=== PATIENT | male | born 1990 | race Caucasian/White ===

== ENCOUNTER 2016-08-20 18:37 | Emergency (ER) | payer OTHER ==
[~2016-08-20] VITALS: Ht 185.4 cm; Wt 79.5 kg
[2016-08-20 18:40] VITALS: BP 144/84; PULSE 92; RESP 20; O2SAT 100
--- NOTE | 2016-08-20 19:19 | ED.REPORT ---
HPI- Male Date of Service Aug 20, 2016 ED Provider: Giovanni Giron MD 26 year old male presents to the ER accompanied by his uncle complaining of blood in his urine at 17:45 this evening. He states that he had some difficulty urinating initially and that the blood appeared at the end of urine stream. Associated symptom of dysuria. Patient denies fever, chills, and diaphoresis. Currently he is on a course of Augmentin to treat cellulitis of the left hand. He is a regular IV heroin and methamphetamine user and states that he last used at 17:30 today. Nursing Notes Stated Complaint: URINATING BLOOD Chief Complaint: General Complaint Nursing Notes Reviewed: Yes (Lumetrics. meds not reconciled) Allergies: Coded Allergies: erythromycin ethylsuccinate (Verified Allergy, Severe, Cardiac Arrest, 14/04) Uncoded Allergies: Erythromycin (Allergy, Severe, Cardiac Arrest, 01/10/05) Scheduled Buprenorphine/Naloxone 8-2 mg (Buprenorphine/Naloxone 8-2 mg) 1 Each Tab.subl 1 TABLET SL BID General Time Seen by MD: 19:18 Chief Complaint Blood in urine Hx Obtained From: Patient Arrived By: Walk-in Onset Occurred: Just prior to arrival Symptom Duration: Since onset Associated with: Denies: Chills, Fever Past Medical History Past Medical History Denies history of kidney stones Denies history of cardiac infection Past Surgical History Colonoscopy Smoking History Unknown if Ever Smoker Social History Alcohol Use: "Social" Drug Use: IV drugs, Meth, Other (Heroin) Other Social History: Good social support Ambulatory Status Independent Review of Systems Constitutional: Denies: Chills, Fever GI: Denies: Abdominal pain, Nausea, Vomiting Male: Reports Dysuria, Reports Hematuria, Denies Flank pain, Denies Incontinence, Denies Penile discharge, Denies Penile lesion, Denies Urinary frequency, Denies Urinary urgency Skin: Denies Diaphoresis Complete sys rev & neg: except as marked. Physical Exam Initial Vital Signs Vital Signs (First) Date Time Temp Pulse Resp B/P Pulse Ox O2 Delivery O2 Flow Rate FiO2 08/20/16 18:40 36.4 92 20 144/84 100 Room Air Initial VS: Reviewed, Vital signs normal General/Constitutional: Well-developed, Well-nourished Head / Eyes: Atraumatic, Normocephalic Neck: Supple, Non-tender, Full range of motion Respiratory: Breath sounds normal, Clear to auscultation, No respiratory distress Cardiovascular: Regular rate & rhythm, Heart sounds normal, Intact distal pulses Abdomen / GI: Soft, Non-tender, No guarding, No rebound, No distention Psychiatric: Mood/affect normal, Behavior normal, Normal thought content Upper Extremity / MS: Full range of motion, No deformity, Neurologic intact, Vascular intact Track shah along both upper extremities. Wrist / Hand: Full range of motion, Neurologic intact, Vascular intact Erythema overlying the left hand, though he says it is markedly improved. Lower Extremity / Pelvis / MS: Full range of motion, Neurologic intact, Vascular intact 1cm cyst over the right hip. Neurologic: Oriented X3, Speech NL, No motor deficits, No sensory deficits Interpretation & Diagnostics Lab Results Interpretation Result Diagram: 08/20/16202408/20/162024 Test 08/20/16 19:29 08/20/16 20:25 Urine Color Yellow (YELLOW) Urine Appearance Clear (CLEAR,HAZY) Urine pH 6.5 (5.0-8.0) Urine Specific Bland 1.020 (1.003-1.035) Urine Protein Negativemg/dL (NEG,TRACE) Urine Glucose (UA) Negativemg/dL (NEGATIVE) Urine Ketones Negativemg/dL (NEGATIVE) Urine Occult Blood Large (NEGATIVE) Urine Nitrite Negative (NEGATIVE) Urine Bilirubin Negative (NEGATIVE) Urine Urobilinogen Normalmg/dL (NORMAL) Urine Leukocyte Esterase Negative (NEGATIVE) Urine RBC 11-50/hpf (0-2) Urine WBC 0-5/hpf (0-5) Urine Epithelial Cells Occasional/hpf (NONE-MOD) Urine Crystals None seen (NONE SEEN) Urine Bacteria None/hpf (NONE-FEW) Urine Hyaline Casts None/lpf (NONE) Urine Granular Casts None seen (NONE SEEN) Urine Waxy Casts None seen (NONE SEEN) Urine Red Blood Cell Casts None seen (NONE SEEN) Urine White Blood Cell Casts None seen (NONE SEEN) Urine Mucus None seen (None Seen) Urine Trichomonas None seen (NONE SEEN) Urine Yeast None (NONE SEEN) Urinalysis Comment None Urine Culture Reflexed Not indicated Hold Urine Received (Received) White Blood Count 7.8th/mm3 (3.8-10.1) Red Blood Count 4.75mil/mm3 (4.40-5.80) Hemoglobin 13.8g/dL (13.8-17.2) Hematocrit 40.4% (41.0-50.0) Mean Corpuscular Volume 85.1fL (81-100) Mean Corpuscular Hemoglobin 29.1pg (27.0-35.0) Mean Corpuscular Hemoglobin Concent 34.2% (32.0-37.0) Red Cell Distribution Width 12.8% (12.3-15.4) Platelet Count 230bil/L (150-400) Neutrophils (%) (Auto) 68.1% (40-74) Lymphocytes (%) (Auto) 23.5% (14-46) Monocytes (%) (Auto) 5.9% (4-12) Eosinophils (%) (Auto) 2.1% (0-5) Basophils (%) (Auto) 0.3% (0-3) Sodium Level 138mEq/L (134-144) Potassium Level 4.5mEq/L (3.5-5.2) Chloride Level 99mEq/L (97-108) Carbon Dioxide Level 28mmol/L (18-29) Blood Urea Nitrogen 14mg/dL (6-20) Creatinine 0.62mg/dL (0.76-1.27) Estimat Glomerular Filtration Rate 165mL/min (>59) Glucose Level 92mg/dL (60-99) Lactic Acid Level 1.0mmol/L (0.4-2.0) Calcium Level 9.6mg/dL (8.5-10.1) Total Bilirubin 0.6mg/dL (0.0-1.2) Aspartate Amino Transf (AST/SGOT) 39U/L (0-50) Alanine Aminotransferase (ALT/SGPT) 21U/L (0-44) Alkaline Phosphatase 112U/L (25-150) Total Creatine Kinase 1215U/L (21-232) Total Protein 7.8g/dL (6.4-8.4) Albumin 4.5g/dL (3.4-5.0) Lab Results Interpretation: CBC normal CMP normal normal renal function UA positive hematuria, no white cells, no signs of infection, no proteinuria, no casts Urine GC pending CPK marginally elevated, not significantly so CT Abd / Pelvis Interpretation IMPRESSION: Nonobstructive solitary 1 mm right renal calculus. Nonspecific ovoid 1.2 cm nodule in the subcutaneous soft tissues of the right hip. Please correlate clinically Dictated by: Yfn Claduio M.D. on 08/20/2016 at 21:02 Approved by: Yfn Claudio M.D. on 08/20/2016 at 21:07 Study type: Abdominal CT no contrast Interpretation / Wet Read by: Interpret - Radiologist Re-Eval/Medical Decision Med Decision/Clinical Course This is a 26-year-old male who presents complaining of gross hematuria, he had a little discomfort, and had difficulty urinating, and then to add some blood in his urine. It was not blood, as urine mixed with blood, so he came to the emergency room. He denies any current trauma, he denies prior history of kidney stones, denies history of difficulties. He is on Augmentin for a cellulitis of the hand which is markedly improved. He admits to substance abuse with heroin and meth. On exam, his abnormal vitals, he is not febrile, he is not toxic he has not distress. He does admit to some recent use, but he is able to converse is not clinically sedated he has normal pupils normal respiratory pattern is able to interact normally. He has no murmurs, lungs are clear. Abdomen soft nontender. He does have resolving cellulitis of the left hand, no signs of abscess. His urinalysis revealed red cells, but no findings of infection. GC is still pending. Given he is already on Augmentin, and looked it up to see if it is associated with hematuria, it is not, and there are no casts or other findings to indicate a maira nephritis. She is worried about a kidney stone, and a CT KUB does reveal a stone in the kidney, but no other pathology. It is possible he had a small stone in the past that caused this, but that is conjecture rather than definitive findings. The CT scan also revealed questionable cyst on the right hip, and indeed there is no abscess at this area is a small cyst that he says he has had for many years. His blood work is notable for mild CPK elevation consistent with rhabdomyolysis from his methamphetamines, it is very mild, his kidney function is normal, there is no indication he requires admission. He is counseled on the need for aggressive oral hydration. At this point a dangerous cause of the hematuria is not been identified. A stone remains in the differential, he had no recent and URI or sore throat indicated post-strep glomerulonephritis. He has normal Renal function and is appropriate for discharge with outpatient follow-up.. He was seen by Dr. Nguyen in as he is interested in Suboxone. The patient's receiving a referral to follow up with Dr. Bang, as instructed need to have a repeat urinalysis-the hematuria is persisting, further workup may be warranted, but it resolves additional testing would not be indicated. His counseled on avoiding substances. Please note that on reevaluation just prior to discharge, the patient appeared clinically intoxicated, I have a high suspicion patient used while in the emergency department. However he is here with friends, who were sober and appropriate, and are comfortable taking the patient home. Dr. Matias Nguyen: I was asked to see this patient by Dr. Giron concerning. Dependence and possible use of Suboxone. He has been "thinking about" getting on Suboxone but has been unable to take the steps necessary to get an appointment. We discussed pros and cons of use, risk and benefits of the medication. He will be given a prescription for Suboxone 8/2 tabs or film, 1 sublingual twice a day for 4 days, #8. He was given a scheduling number for an expedited referral to [facility] on Wednesday, the first day I have available appointments. Source of Hx: Old records Re-Evaluation/Progress #1: Time of Eval: 20:12 Re-Evaluation/Progress Note: Updated patient on the plan of care. Re-Evaluation/Progress #2: Time of Eval: 22:03 Re-Evaluation/Progress Note: Discussed lab and radiology results and plan to discharge. Patient is amenable to the plan. Return precautions given. All other questions addressed. Differential Diagnosis: Negative: Abrasion, Abscess, Condyloma, Cystitis, acute , Joshua's gangrene, Laceration, Necrotizing fasciitis, Prostatitis, Pyelonephritis, acute, Urinary tract infection Counseled Regarding: Diagnosis, Lab results, Need for follow-up, When/why to return to ED Discharge & Departure Impression: Primary Impression: Gross hematuria Additional Impression: Polysubstance abuse Disposition: Home Discharge Condition All VS Reviewed: Yes Condition: Stable Patient Instructions: Buprenorphine/Naloxone (By mouth) Additional Instructions: 1. Your tests do confirm some blood in the urine, however there were no markers of infection. 2. You do have a kidney stone in the kidney (but it is not causing any problems - it is stones that move from the kidney to the bladder through the tube called the ureter that cause problems. There are no signs of an active stone, although it is possible you passed a small stone) 3. Your blood counts were normal including your kidney tests. 4. You do need to drink plenty of water. You do have some mild "CPK" or muscle breakdown that occurs with methamphetamine use. It is not serious, but hydration resolves it - and occasionally methamphetamine can cause serious elevations that cause kidney problems. 5. Continue and complete your Augmentin (Amox-Clav) for your hand cellulitis. 6. This blood is expected to resolve on its own. Our recommendation is to be seen and rechecked in about [address] Bang for an appointment. (If bleeding is not resolved, then the next step would be referral to urology) 7. Return if new or worsening symptoms. Buprenorphine/naloxone 8/2 tabs, one dissolved orally twice daily, #8 prescription written. Do not use this until 24 hours after your last opiate use. Call [phone] tomorrow to schedule an appointment to see me at [facility] on Wednesday for Suboxone maintenance. Referrals: Sam Moore MD (Family) Aly Bang MD Attestation Portions of this note were transcribed by Luke Madsen. I, Dr. Giron, personally performed the history, physical exam and medical decision-making; I reviewed and confirmed the accuracy of the information in the transcribed note. Signed by: Minnie Templeton, 08/20/2016 and 22:08 copies to: Sam Moore MD; Aly Bang MD, Matthew F MD Aug 20, 2016 19:19 LUKE MADSEN Aug 20, 2016 19:29 Matias Nguyen MD Aug 20, 2016 21:23
[2016-08-20 20:00] LABS: APPEARANCE,URINE CLEAR (CLEAR,HAZY); COLOR,URINE YELLOW (YELLOW); OCCULT BLOOD,URINE LARGE (NEGATIVE); PH,URINE 6.5 (5.0-8.0); UROBILINOGEN,URINE NORMAL (NORMAL)
[2016-08-20] MEDS ORDERED: Fluorescein 0.6 mg Ophthalmic Strip RIGHT_EYE ONE (20:05)
[2016-08-20] MEDS ORDERED: 0.9% Sodium Chloride Inhalation Solution RIGHT_EYE ONE (20:05)
[2016-08-20] MEDS ORDERED: Tetracaine 0.5% 4 mL Ophthalmic Solution RIGHT_EYE ONE (20:05)
[2016-08-20 20:41] LABS: BASOPHILS % (AUTO) 0.3 % (0-3); EOSINOPHILS % (AUTO) 2.1 % (0-5); MONOCYTES % (AUTO) 5.9 % (4-12); Mean Corpuscular Hemoglobin 29.1 pg (27.0-35.0); Mean Corpuscular Volume 85.1 fL (81-100); NEUTROPHILS % (AUTO) 68.1 % (40-74); Platelet Count 230 bil/L (150-400)
--- NOTE | 2016-08-20 21:07 | DRSVH ---
PROCEDURE: CT KUB ([id number]) INDICATIONS: gross hematuria pain TECHNIQUE: Noncontrast 5 mm thick sections acquired from the diaphragms to the symphysis. 5 mm thick coronal an d sagittal reformats were then performed. For radiation dose reduction, the following was used: aut omated exposure control, adjustment of mA and/or kV according to patient size. COMPARISON: None. FINDINGS: Image quality: Excellent. Lung bases: Lung bases are clear. Heart size is normal. Urinary system: Both kidneys are normal in size. Solitary 1 mm right renal calculus in the interpola r region on image 31 series 2. No other urolithiasis is seen. No hydronephrosis or perinephric fat s tranding. Both ureters appear non-dilated throughout their expected courses. Bladder wall thickness is normal; no calcified bladder stones. Other solid organs: Liver and spleen are normal in size. Gallbladder unremarkable. Pancreas is nor mal in contours. No adrenal nodules. Peritoneum and bowel: Unenhanced bowel loops demonstrate normal wall thickness and caliber. No free fluid or air. Normal appendix. Nodes and vessels: No retroperitoneal or mesenteric adenopathy by size criteria. Aorta and inferior vena cava are normal in caliber. Abdominal wall: No ventral hernias. Ovoid 1.2 cm subcutaneous nodule seen in the right hip soft tis sues image 79 series 2 Pelvis: No free pelvic fluid. No inguinal hernias or adenopathy. Bones: No suspicious bony lesions. No vertebral body compression fractures. IMPRESSION: Nonobstructive solitary 1 mm right renal calculus. Nonspecific ovoid 1.2 cm nodule in the subcutaneous soft tissues of the right hip. Please correlate c linically Dictated by: Yfn Claudio M.D. on 08/20/2016 at 21:02 Approved by: Yfn Claudio M.D. on 08/20/2016 at 21:07
[2016-08-20] MEDS ORDERED: BUPR1TAB36 SL (21:24)
[2016-08-20 22:18] VITALS: BP 133/80; PULSE 99; RESP 16; O2SAT 99
== END 2016-08-20 22:19 | disposition home or self-care (01) ==
LOC: SED 19:41
DX: R31.0 Gross hematuria (principal); F11.10 Opioid abuse, uncomplicated; F15.10 Other stimulant abuse, uncomplicated; Z88.1 Allergy status to other antibiotic agents